=== PATIENT | male | born 1995 | race African-American/Black ===

== ENCOUNTER 2024-04-27 09:53 | Emergency (ER) | payer SELFPAY ==
[~2024-04-27] VITALS: Ht 182.9 cm; Wt 117.9 kg
[2024-04-27 09:58] VITALS: TEMP 98.1
[2024-04-27] MEDS: KETOROLAC TROMETHAMINE 30 MG/ML VIAL IM STA (10:27)
[2024-04-27 10:31] VITALS: PULSE 77; RESP 16
[2024-04-27] MEDS ORDERED: NAPROXEN250 MG PO (11:10)
[2024-04-27 11:19] VITALS: BP 134/99; PULSE 76; RESP 18; O2SAT 100
== END 2024-04-27 11:20 | disposition home or self-care (01) ==
LOC: ER 10:08
DX: M79.675 Pain in left toe(s) (principal); W22.09XA Striking against other stationary object, initial encounter; Y92.89 Other specified places as the place of occurrence of the external cause
CPT/HCPCS: 73660; 99283; J1885